=== PATIENT | female | born 1990 ===

== ENCOUNTER 2025-03-28 17:58 | Inpatient (IN) | payer MEDICAID ==
[2025-03-28] MEDS ORDERED: ZOLPIDEM TARTRATE 10 MG TABLET PO PRN (19:00)
[2025-03-29 00:47] VITALS: BP 136/87; PULSE 81; RESP 18; TEMP 98.2; O2SAT 100
[2025-03-29] MEDS: LORazepam 2 MG/ML VIAL IM ONE (04:13)
[2025-03-29] MEDS ORDERED: INFLUENZA VIRUS VACCINE TVS (6MO+) 2025-26/PF 45 MCG/0.5 ML SYRINGE IM. ONE (04:15)
[2025-03-29 08:21] VITALS: BP 90/59; PULSE 75; RESP 20; TEMP 97.9; O2SAT 98
[2025-03-29] MEDS ORDERED: LOPERAMIDE HCL 2 MG CAPSULE PO PRN (11:00)
[2025-03-29] MEDS ORDERED: ONDANSETRON 4 MG TABLET PO PRN (11:00)
[2025-03-29] MEDS ORDERED: MAG HYDROX/ALUMINUM HYD/SIMETH ES 30 ML SUSPENSION UDCUP PO PRN (11:00)
[2025-03-29] MEDS ORDERED: PETROLATUM,WHITE 28 GM JELLY TP PRN (11:00)
[2025-03-29] MEDS ORDERED: DOCUSATE SODIUM 100 MG CAPSULE PO PRN (11:00)
[2025-03-29] MEDS ORDERED: OMEPRAZOLE 20 MG CAPSULE PO PRN (11:00)
[2025-03-29] MEDS ORDERED: ALBUTEROL SULFATE HFA 90 MCG/PUFF 8 GM INHALER IH PRN (11:00)
[2025-03-29] MEDS ORDERED: IBUPROFEN 600 MG TABLET PO PRN (11:00)
[2025-03-29] MEDS ORDERED: MAGNESIUM HYDROXIDE SUSPENSION 30 ML UDCUP PO PRN (11:00)
[2025-03-29] MEDS ORDERED: ACETAMINOPHEN 325 MG TABLET PO PRN (11:00)
[2025-03-29] MEDS ORDERED: BACITRACIN 28 GM OINTMENT TP PRN (11:00)
[2025-03-29] MEDS ORDERED: BENZOCAINE/MENTHOL [CEPACOL] LOZENGE PO PRN (11:00)
[2025-03-29 20:11] VITALS: BP 110/70; PULSE 77; RESP 18; TEMP 98.2; O2SAT 99
[2025-03-30 08:07] VITALS: BP 111/78; PULSE 95; RESP 17; TEMP 97.3; O2SAT 100
[2025-03-30 10:03] LABS: PLATELET COUNT (AUTO) 377 K/uL (150-450); RED BLOOD CELL COUNT(AUTO) 3.93 MIL/uL (4.00-5.20); RED CELL DISTRIBUTION WIDTH 13.5 % (11.5-14.5); WHITE BLOOD COUNT (AUTO) 4.6 K/uL (4.5-11.0)
[2025-03-30 10:30] LABS: ASPARTATE AMINOTRANSFERASE 28 U/L (15-37); CALCIUM, TOTAL 8.9 mg/dL (8.8-10.5); CHOL/HDL RATIO 1.9 (3.9-5.7); CREATININE 0.72 mg/dL (0.60-1.30); GLOMERULAR FILTR. RATE CALC > 60 mL/min (>60); GLUCOSE,RANDOM 57 mg/dL (70-110); LDL CHOL (CALC.) 62 mg/dL (0-130); PHOSPHORUS 4.2 mg/dL (2.5-4.9); SODIUM SERUM 142 mmol/L (136-145); TOTAL PROTEIN, SERUM 7.2 g/dL (6.4-8.2); UREA NITROGEN, BLOOD 15 mg/dL (7-18)
[2025-03-30 20:17] VITALS: BP 125/70; PULSE 98; RESP 17; TEMP 97.9; O2SAT 98
[2025-03-31 08:15] VITALS: RESP 17
[2025-03-31 20:09] VITALS: BP 104/70; PULSE 102; RESP 17; TEMP 97.7; O2SAT 98
[2025-04-01 08:21] VITALS: BP 105/78; PULSE 115; RESP 17; TEMP 97.1; O2SAT 98
[2025-04-01 20:48] VITALS: BP 110/76; PULSE 95; RESP 16; TEMP 97.8; O2SAT 98
[2025-04-02] MEDS ORDERED: RISP-31 PO (07:35)
== END 2025-04-02 09:19 | disposition home or self-care (01) | DRG 750 ==
LOC: B3A 20:38
PROVIDERS: ADMIT Psychiatry & Neurology Psychiatry; ATTEND Psychiatry & Neurology Psychiatry
DX: F20.9 Schizophrenia, unspecified (principal); Z59.00 Homelessness unspecified; F10.10 Alcohol abuse, uncomplicated; F15.10 Other stimulant abuse, uncomplicated; F41.9 Anxiety disorder, unspecified; K59.00 Constipation, unspecified; G47.00 Insomnia, unspecified
CPT/HCPCS: 80053; 80061; 83036; 83735; 84100; 84443; 85025; J1200; J1630; J2060